=== PATIENT | male | born 1985 | race Caucasian/White ===

== ENCOUNTER 2016-08-26 23:21 | Emergency (ER) | payer OTHER ==
[~2016-08-26] VITALS: Ht 162.6 cm; Wt 56.6 kg
[~2016-08-26 23:21] MED LIST: SERT25TA83 PO
[2016-08-26 23:26] VITALS: BP 139/92; PULSE 110; RESP 18; TEMP 98.1; O2SAT 98
[2016-08-26] MEDS ORDERED: SERT25TA83 PO (23:53)
--- NOTE | 2016-08-27 00:12 | PD ---
HPI Chief Complaint: Injury Time Seen by Provider: 00:05 Travel History International Travel<30 days: No Contact w/Intl Traveler<30days: No Traveled to known affect area: No History of Present Illness HPI The patient is a 31-year-old male that stepped in a hole while he was using an edger at work today. He complains of pain in the ankle and the foot. He also has some slight right knee pain. He also says he has a pruritic rash on his hands and occasionally the face for years. He says it might be poison vin/ poison oak. PFSH Past Medical History Asthma: No Depression: Yes (MEDS) Diabetes: No Diminished Hearing: No Immunizations Current: Yes Social History Alcohol Use: Yes (SOCIALLY) Tobacco Use: Yes (1/2 ppd) Substance Use: Yes (MARIJUNA) Allergies-Medications (Allergen,Severity, Reaction): Coded Allergies: Honey Bee (Verified Allergy, Severe, HIVES, 08/26/16) Reported Meds & Prescriptions Reported Meds & Active Scripts Active Reported Sertraline (Sertraline HCl) 25 Mg Tab 25 Mg PO DAILY Review of Systems Except as stated in HPI: all other systems reviewed are Neg Physical Exam Narrative GENERAL: Well-nourished, well-developed patient in minimal apparent distress with his right ankle/right foot and right knee pain. His heart rate is 110 and blood pressure 139/92 but the rest the vital signs are normal. SKIN: Focused skin assessment warm/dry. No needle tracks nor wrist slash cottrell are present. HEAD: Normocephalic. EYES: No scleral icterus. No injection or drainage. NECK: Supple, trachea midline. No JVD or lymphadenopathy. CARDIOVASCULAR: Regular rate and rhythm without murmurs, gallops, or rubs. RESPIRATORY: Breath sounds equal bilaterally. No accessory muscle use. GASTROINTESTINAL: Abdomen soft, non-tender, nondistended. MUSCULOSKELETAL: No cyanosis, or edema. The right knee shows intact testing for collaterals, drawer and Narciso. There is some sputum minimal lateral knee tenderness over the joint line. No swelling is present over the right knee. No deformity is present right knee. Full range of motion is possible with minimal discomfort. The right ankle show slight tenderness without any visible swelling or deformity. The right foot shows slight tenderness without any deformity. Good capillary refill and pinprick is present distally on the right foot. BACK: Nontender without obvious deformity. No CVA tenderness. Data Data Last Documented VS Vital Signs Date Time Temp Pulse Resp B/P Pulse Ox O2 Delivery O2 Flow Rate FiO2 08/26/16 23:51 20 08/26/16 23:26 98.1 110 139/92 98 Orders Ankle, Complete ([id number]) (08/27/16 00:05) Foot, Complete ([id number]) (08/27/16 00:05) MDM Medical Decision Making Medical Screen Exam Complete: Yes Emergency Medical Condition: Yes Medical Record Reviewed: Yes Interpretation(s) X-rays of the foot and ankle are unremarkable. Differential Diagnosis Fracture knee, contusion knee, fractured ankle, dislocation ankle, contusion ankle, ankle sprain, contusion foot, fracture foot Narrative Course The patient has an ankle sprain and contusion of the foot. He also has contact dermatitis of the hands, face and back. Plan: The patient is given Motrin, crutches, Lortab 5 for pain and a work note for 6 days. Is also given prednisone for the contact dermatitis. He needs to avoid contact with poison vin/poison oak in the future, gloves may help him do this. He will need to wash the gloves frequently because the poison vin/oak can penetrate into the gloves. Diagnosis Primary Impression: Sprained ankle Additional Impressions: Contusion, foot Contact dermatitis Med/Other Pt SpecificInfo: Prescription(s) given Scripts Prednisone 50 Mg Tab50 Mg PO BID #12 TAB Ref 0 Prov:Jesus Gifford MD 08/27/16 Oxycodone-Acetaminophen (Percocet)5-325 mg Tab1 Tab PO Q6H PRN (PAIN) #20 TAB Ref 0 Prov:Jesus Gifford MD 08/27/16 Ibuprofen 800 Mg Dib160 Mg PO TID #33 TAB Ref 0 Prov:Jesus Gifford MD 08/27/16 Disposition: 01 DISCHARGE HOME Condition: Stable Jesus Gifford MD August 27, 2016 00:12
--- NOTE | 2016-08-27 00:34 | RADHPO ---
EXAM DATE/TIME: 08/27/2016 00:16 [facility] COMPARISON: No previous studies available for comparison. INDICATIONS : Right ankle pain after stepping in hole. MEDICAL HISTORY : None. SURGICAL HISTORY : None. ENCOUNTER: Initial ACUITY: 1 day PAIN SCORE: 7/10 LOCATION: Right ankle FINDINGS: No definite fractures, or dislocations are identified. No definite lytic or sclerotic lesion is seen . The joint spaces are well maintained. CONCLUSION: Unremarkable study. Chato Mcneal MD on August 27, 2016 at 0:32 Board Certified Radiologist. This report was verified electronically.
--- NOTE | 2016-08-27 00:35 | RADHPO ---
EXAM DATE/TIME: 08/27/2016 00:17 [facility] COMPARISON: No previous studies available for comparison. INDICATIONS : Right foot pain after stepping in hole. MEDICAL HISTORY : None. SURGICAL HISTORY : None. ENCOUNTER: Initial ACUITY: 1 day PAIN SCORE: 7/10 LOCATION: Right foot FINDINGS: No definite fractures, or dislocations are identified. No definite lytic or sclerotic lesion is seen . The joint spaces are well maintained. CONCLUSION: Unremarkable study. Chato Mcneal MD on August 27, 2016 at 0:33 Board Certified Radiologist. This report was verified electronically.
[2016-08-27] MEDS ORDERED: PERC5TAB12 PO (01:59)
[2016-08-27] MEDS ORDERED: IBUP800T23 PO (01:59)
[2016-08-27] MEDS ORDERED: PRED50 PO (01:59)
[2016-08-27] MEDS ORDERED: predniSONE 20 MG TAB PO ONE (02:15)
[2016-08-27 02:26] VITALS: BP 137/86
== END 2016-08-27 02:30 | disposition home or self-care (01) ==
LOC: PHED 23:21
DX: S93.401A Sprain of unspecified ligament of right ankle, initial encounter (principal); S90.31XA Contusion of right foot, initial encounter; L25.9 Unspecified contact dermatitis, unspecified cause; W17.2XXA Fall into hole, initial encounter; Y93.H2 Activity, gardening and landscaping; Y92.9 Unspecified place or not applicable; Y99.0 Civilian activity done for income or pay; F17.210 Nicotine dependence, cigarettes, uncomplicated; F12.10 Cannabis abuse, uncomplicated; F32.9 Major depressive disorder, single episode, unspecified
CPT/HCPCS: 73610; 73630; 99284; E0113; J7512